=== PATIENT | male | born 1940 | race Caucasian/White ===

== ENCOUNTER 2017-07-15 11:09 | Emergency (ER) | payer MEDICARE ==
[2017-07-15 12:32] LABS: BASOPHILS # (AUTO) 0.1 10^3/uL (0.0-0.1); BASOPHILS % (AUTO) 1.5 %; EOSINOPHILS # (AUTO) 0.3 10^3/uL (0.0-0.7); EOSINOPHILS % (AUTO) 5.1 %; HCT - HEMATOCRIT 44.6 % (42.0-52.0); HGB - HEMOGLOBIN 14.9 g/dL (14.0-18.0); LYMPHOCYTES # (AUTO) 0.9 10^3/uL (1.5-3.5); LYMPHOCYTES % (AUTO) 13.7 %; MEAN CORPUSCULAR HGB CONC 33.5 g/dL (32.0-36.0); MEAN CORPUSCULAR VOLUME 89.6 fL (80.0-94.0); MONOCYTES # (AUTO) 0.7 10^3/uL (0.0-1.0); MONOCYTES % (AUTO) 10.6 %; NEUTROPHILS # (AUTO) 4.6 10^3/uL (1.5-6.6); NEUTROPHILS % (AUTO) 69.1 %; NUCLEATED RED BLOOD CELLS AUTO 0.1 /100WBC; RED BLOOD COUNT 4.97 10^6/uL (4.70-6.10); RED CELL DISTRIBUTION WIDTH 14.2 % (12.0-15.0); UNCORRECTED WHITE BLOOD COUNT 6.7 x10^3/uL; WHITE BLOOD COUNT 6.7 x10^3/uL (4.8-10.8)
[2017-07-15 12:33] LABS: INR 3.2 (0.8-1.2)
[2017-07-15 12:39] LABS: ALBUMIN/GLOBULIN RATIO 1.1 (1.0-2.2); BILIRUBIN,TOTAL 0.9 mg/dL (0.2-1.0); CALCIUM 9.1 mg/dL (8.5-10.3); CREATININE 1.2 mg/dL (0.6-1.2); POTASSIUM 4.2 mmol/L (3.5-5.0); TOTAL PROTEIN 7.3 g/dL (6.7-8.2)
--- NOTE | 2017-07-15 12:44 | XRAY Preliminary Report ---
Exam: XR CHEST 2 VIEW PA/LAT IMPRESSION: 1. Chronic lung disease. 2. Possible trace left pleural effusion. [facility] SITE ID: [id number]
--- NOTE | 2017-07-15 12:47 | XRAY Report ---
EXAM: CHEST RADIOGRAPHY EXAM DATE: 07/15/2017 12:30 PM. CLINICAL HISTORY: Cough/congestion. COMPARISON: 10/22/2015. 07/07/2014. TECHNIQUE: 2 views. FINDINGS: Lungs/Pleura: The lungs are hyperinflated with flattening of the diaphragms. The left costophrenic an gle is blunted. There are chronic interstitial markings. No acute infiltrate or consolidation is appr eciated. No pneumothorax or pleural effusion. Mediastinum: Stable cardiac and mediastinal silhouettes. Other: Sternal wires. IMPRESSION: 1. Chronic lung disease. 2. Possible trace left pleural effusion. [facility] Referring Provider Line: [phone] SITE ID: [id number]
[2017-07-15] MEDS ORDERED: DEXAMETHASONE 10 MG/ML VIAL PO STA (12:55)
[2017-07-15] MEDS ORDERED: IPRATROPIUM/ALBUTEROL 3 ML NEB INH STA (12:55)
--- NOTE | 2017-07-15 12:58 | ED Physician Documentation ---
PD HPI URI - Stated complaint Stated Complaint: COUGHING UP BLOOD - Chief complaint Chief Complaint: Resp - History obtained from History obtained from: Patient - History of Present Illness Timing - onset: How many weeks ago (2) Timing duration: Weeks (2) Timing details: Gradual onset Pain level max: 0 Pain level now: 0 Associated symptoms: Nasal congestion, Rhinorrhea, Dry cough, Hemoptysis (small amount, pink at the end of coughing spells), Dyspnea (wheezing, hasn't used his inhalers). No: Fever, Chills, Chest pain Contributing factors: Other (states cleaned up mold in his home a few weeks ago) Improves by: Rest Worsened by: Activity, Breathing Similar symptoms before: Diagnosis (pneumonia) Recently seen: Not recently seen Review of Systems Ten Systems: 10 systems reviewed and negative Constitutional: denies: Fever, Chills Ears: denies: Ear pain Nose: reports: Rhinorrhea / runny nose, Congestion Throat: denies: Sore throat Cardiac: denies: Chest pain / pressure Respiratory: reports: Cough, Wheezing Skin: denies: Rash Musculoskeletal: denies: Neck pain, Back pain Neurologic: denies: Headache PD PAST MEDICAL HISTORY - Past Medical History Cardiovascular: Congestive heart failure, Hypertension, High cholesterol, Coronary artery disease, [place], Atrial fibrillation Respiratory: CPAP use Neuro: None Endocrine/Autoimmune: None GI: GERD : Incontinence HEENT: Macular degeneration Psych: None Musculoskeletal: Osteoarthritis Derm: Other - Past Surgical History Past Surgical History: Yes Cardiovascular: CABG, Coronary stent, Valve replacement - Present Medications Home Medications: Ambulatory Orders Medication Instructions Recorded Confirmed Aspirin [Ecotrin] 81 mg PO DAILY 07/07/14 10/22/15 Carvedilol [Coreg] 3.125 mg PO QPM 07/07/14 10/22/15 Cholecalciferol (Vitamin D3) 2,000 unit PO DAILY 07/07/14 10/22/15 [Vitamin D-3] Ezetimibe [Zetia] 10 mg PO QPM 07/07/14 10/22/15 Lisinopril [Prinivil] 20 mg PO BID 07/07/14 10/22/15 Multivitamin [Multivitamins] 1 each PO DAILY 07/07/14 10/22/15 [place]-3 Fatty Acids [Fish Oil] 2,000 mg PO BID 07/07/14 10/22/15 Pravastatin Sodium 20 mg PO QPM 07/07/14 10/22/15 Vitamin E 400 unit PO DAILY 07/07/14 10/22/15 Warfarin Sodium [Coumadin] 10 mg PO DAILY 07/07/14 10/22/15 Furosemide [Lasix] 20 mg PO DAILY #10 tablet 10/22/15 Potassium Chloride [K-Dur] 20 meq PO DAILY #10 tablet 10/22/15 Ropinirole HCl [Requip] 1 mg 10/22/15 10/22/15 amLODIPine [Norvasc] 5 mg 10/22/15 10/22/15 Albuterol Sulf [Ventolin Hfa 2 puffs INH Q4HR PRN #1 inhaler 07/15/17 Inhaler] Cetirizine HCl/Pseudoephedrine 1 each PO BID PRN #30 tab.er.12h 07/15/17 [Zyrtec-D Tablet] Prednisone 40 mg PO DAILY #10 tablet 07/15/17 - Allergies Allergies/Adverse Reactions: Allergies Allergy/AdvReac Type Severity Reaction Status Date / Time niacin AdvReac Unknown Verified 10/22/15 16:40 nitroglycerin AdvReac Headache Verified 10/22/15 16:40 - Social History Does the pt smoke?: No Smoking Status: Never smoker Does the pt drink ETOH?: No Does the pt have substance abuse?: No - Immunizations Immunizations are current?: Yes - POLST Patient has POLST: No PD ED PE NORMAL - Vitals Vital signs reviewed: Yes - General General: Alert and oriented X 3, No acute distress - HEENT HEENT: PERRL, Moist mucous membranes, Pharynx benign - Neck Neck: Supple, no meningeal sign, No adenopathy - Cardiac Cardiac: RRR, Strong equal pulses - Respiratory Respiratory: No respiratory distress, Other (wheezing B) - Abdomen Abdomen: Soft, Non tender, Non distended - Derm Derm: Warm and dry - Extremities Extremities: No edema, No calf tenderness / cord - Neuro Neuro: Alert and oriented X 3 - Psych Psych: Normal mood, Normal affect Results - Vitals Vitals: Vital Signs - 24 hr 07/15/17 07/15/17 07/15/17 11:25 12:41 13:06 Temperature 36.5 C 36.2 C L Heart Rate 54 L 73 82 Respiratory 17 15 16 Rate Blood Pressure 164/91 H 195/96 H O2 Saturation 97 97 07/15/17 13:25 Temperature 36.6 C Heart Rate 62 Respiratory Rate Blood Pressure 163/98 H O2 Saturation 97 Oxygen O2 Source Room air - Labs Labs: Laboratory Tests 07/15/17 07/15/17 07/15/17 12:20 12:20 12:20 WBC 6.7 RBC 4.97 Hgb 14.9 Hct 44.6 MCV 89.6 MCH 30.0 MCHC 33.5 RDW 14.2 Plt Count 175 MPV 8.0 Neut # 4.6 Lymph # 0.9 L [place] # 0.7 Eos # 0.3 Baso # 0.1 Absolute Nucleated RBC 0.00 Nucleated RBC % 0.1 PT 36.0 H INR 3.2 H Sodium 138 Potassium 4.2 Chloride 105 Carbon Dioxide 26 Anion Gap 7.0 BUN 17 Creatinine 1.2 Estimated GFR (MDRD) 59 L Glucose 104 H Calcium 9.1 Total Bilirubin 0.9 AST 43 H ALT 44 Alkaline Phosphatase 68 B-Natriuretic Peptide Total Protein 7.3 Albumin 3.8 Globulin 3.5 Albumin/Globulin Ratio 1.1 Lipase 27 07/15/17 12:20 WBC RBC Hgb Hct MCV MCH MCHC RDW Plt Count MPV Neut # Lymph # [place] # Eos # Baso # Absolute Nucleated RBC Nucleated RBC % PT INR Sodium Potassium Chloride Carbon Dioxide Anion Gap BUN Creatinine Estimated GFR (MDRD) Glucose Calcium Total Bilirubin AST ALT Alkaline Phosphatase B-Natriuretic Peptide 218 H Total Protein Albumin Globulin Albumin/Globulin Ratio Lipase - Rads (name of study) cxr Radiology: Prelim report reviewed, EMP read contemporaneously, See rad report ( Chronic lung disease. poss trace L pleural effusion) PD MEDICAL DECISION MAKING - ED course Complexity details: reviewed results, re-evaluated patient, considered differential, d/w patient ED course: Patient is a 76-year-old male who presents to the emergency department with what appears to be a viral URI with wheezing. He does have chronic lung disease and feels better after nebulizer treatment. His INR is also supratherapeutic and will hold his next dose of warfarin. We will continue supportive care in addition to steroids and breathing treatments at home. No evidence of pneumonia. No evidence of significant hemoptysis, appears to be a small amount of hemoptysis likely shear forces from coughing coupled with his elevated INR. Patient is very well-appearing, nontoxic. Afebrile. No hypoxia. Patient counseled regarding signs and symptoms for which I believe and urgent re-evaluation would be necessary. Patient with good understanding of and agreement to plan and is comfortable going home at this time This document was made in part using voice recognition software. While efforts are made to proofread this document, sound alike and grammatical errors may occur. Departure - Departure Disposition: Home, Self Care Clinical Impression: Viral URI, Supratherapeutic INR, Hemoptysis Condition: Good Instructions: ED URI Viral Follow-Up: Patrick Bartholomew MD [Primary Care Provider] - Within 1 week Prescriptions: Albuterol Sulf [Ventolin Hfa Inhaler] 2 puffs INH Q4HR PRN #1 inhaler PRN Reason: Wheezing Cetirizine HCl/Pseudoephedrine [Zyrtec-D Tablet] 1 each PO BID PRN #30 tab.er.12h PRN Reason: Nasal Congestion Prednisone 40 mg PO DAILY #10 tablet Comments: Return if you worsen. Hold your next dose of warfarin. Discharge Date/Time: 07/15/17 13:28
[2017-07-15] MEDS ORDERED: IPRATROPIUM/ALBUTEROL 3 ML NEB INH ONE (13:06)
[2017-07-15] MEDS ORDERED: DEXAMETHASONE 10 MG/ML VIAL ONE ×2 (13:22→13:25)
[2017-07-15] MEDS ORDERED: CHERRY SYRUP 10 ML UDC PO ONE ×2 (13:22→13:25)
[2017-07-15 13:26] VITALS: BP 163/98
== END 2017-07-15 13:28 | disposition home or self-care (01) ==
LOC: ED 11:09
DX: J06.9 Acute upper respiratory infection, unspecified (principal); B97.89 Other viral agents as the cause of diseases classified elsewhere; D68.9 Coagulation defect, unspecified; R04.2 Hemoptysis; I11.0 Hypertensive heart disease with heart failure; I50.9 Heart failure, unspecified; I25.10 Atherosclerotic heart disease of native coronary artery without angina pectoris; Z95.1 Presence of aortocoronary bypass graft; I25.2 Old myocardial infarction; I48.91 Unspecified atrial fibrillation; Z79.01 Long term (current) use of anticoagulants; E78.00 Pure hypercholesterolemia, unspecified; M19.90 Unspecified osteoarthritis, unspecified site; K21.9 Gastro-esophageal reflux disease without esophagitis; Z95.2 Presence of prosthetic heart valve; Z79.82 Long term (current) use of aspirin
CPT/HCPCS: 36415; 71020; 80053; 83690; 83880; 85025; 85610; 94640; 94664; 99283; A9270; J7620

== ENCOUNTER 2018-12-19 14:20 | Emergency (ER) | payer MEDICARE, OTHER ==
[2018-12-19 14:28] VITALS: BP 156/80
--- NOTE | 2018-12-19 15:09 | ED Physician Documentation ---
PD HPI LOWER EXT INJURY - Stated complaint Stated Complaint: LT ANKLE INJURY - Chief complaint Chief Complaint: General - History obtained from History obtained from: Patient - History of Present Illness PD HPI LOW EXT INJURY LOCATION: Left, Ankle Type of injury: Fall Where injury occurred: Home Timing - onset: Enter time (1100), Today Timing - duration: Minutes Timing - details: Abrupt onset, Still present Improved by: Rest, Immobilization Worsened by: Moving, Palpating Associated symptoms: Swelling. No: Weakness, Numbness, Tingling Contributing factors: No: Anticoagulated Similar symptoms before: Has not had sx before Recently seen: Not recently seen - Additional information Additional information: 78-year-old male was up on a ladder today to put up a [employer] feeder and he was up about 3 rungs when he stepped wrong stepped down and fell the rest of the way. He landed on both of his feet and twisted his left ankle. He complains of some pain to the medial malleolus and he has been able to bear weight on this and walk into the emergency department. Review of Systems Constitutional: denies: Fever Respiratory: denies: Cough GI: denies: Vomiting, Diarrhea Musculoskeletal: reports: Joint swelling, Pain with weight bearing. denies: Neck pain, Back pain Neurologic: denies: Generalized weakness, Focal weakness, Numbness PD PAST MEDICAL HISTORY - Past Medical History Cardiovascular: Congestive heart failure, Hypertension, High cholesterol, Coronary artery disease, [place], Atrial fibrillation Respiratory: CPAP use Endocrine/Autoimmune: None GI: GERD : Incontinence HEENT: Macular degeneration Psych: None Musculoskeletal: Osteoarthritis Derm: Other - Past Surgical History Past Surgical History: Yes Cardiovascular: CABG, Coronary stent, Valve replacement - Present Medications Home Medications: Ambulatory Orders Medication Instructions Recorded Confirmed Aspirin [Ecotrin] 81 mg PO DAILY 07/07/14 10/22/15 Carvedilol [Coreg] 3.125 mg PO QPM 07/07/14 10/22/15 Cholecalciferol (Vitamin D3) 2,000 unit PO DAILY 07/07/14 10/22/15 [Vitamin D-3] Ezetimibe [Zetia] 10 mg PO QPM 07/07/14 10/22/15 Lisinopril [Prinivil] 20 mg PO BID 07/07/14 10/22/15 Multivitamin [Multivitamins] 1 each PO DAILY 07/07/14 10/22/15 [place]-3 Fatty Acids [Fish Oil] 2,000 mg PO BID 07/07/14 10/22/15 Pravastatin Sodium 20 mg PO QPM 07/07/14 10/22/15 Vitamin E 400 unit PO DAILY 07/07/14 10/22/15 Warfarin Sodium [Coumadin] 10 mg PO DAILY 07/07/14 10/22/15 Furosemide [Lasix] 20 mg PO DAILY #10 tablet 10/22/15 Potassium Chloride [K-Dur] 20 meq PO DAILY #10 tablet 10/22/15 Ropinirole HCl [Requip] 1 mg 10/22/15 10/22/15 amLODIPine [Norvasc] 5 mg 10/22/15 10/22/15 Albuterol Sulf [Ventolin Hfa 2 puffs INH Q4HR PRN #1 inhaler 07/15/17 Inhaler] Cetirizine HCl/Pseudoephedrine 1 each PO BID PRN #30 tab.er.12h 07/15/17 [Zyrtec-D Tablet] predniSONE [Prednisone] 40 mg PO DAILY #10 tablet 07/15/17 - Allergies Allergies/Adverse Reactions: Allergies Allergy/AdvReac Type Severity Reaction Status Date / Time niacin AdvReac Unknown Verified 12/19/18 14:28 nitroglycerin AdvReac Headache Verified 12/19/18 14:28 - Social History Does the pt smoke?: No Smoking Status: Never smoker Does the pt drink ETOH?: No Does the pt have substance abuse?: No - Immunizations Immunizations are current?: Yes - POLST Patient has POLST: No PD ED PE NORMAL - Vitals Vital signs reviewed: Yes (hypertension ) - General General: Alert and oriented X 3, No acute distress, Well developed/nourished - HEENT HEENT: Atraumatic - Respiratory Respiratory: No respiratory distress - Derm Derm: Normal color, Warm and dry, No rash - Extremities Extremities: No deformity, Other (There is post inflammitory hyperpigmentation to the lower ext. There is point tenderness and swelling to the left ankle joint with maximal tenderness to the medial malleolus. The distal n/v is intact. ) - Neuro Neuro: Alert and oriented X 3, behavior clinician 2-12 intact, No motor deficit, No sensory deficit Eye Opening: Spontaneous Motor: Obeys Commands Verbal: Oriented GCS Score: 15 - Psych Psych: Normal mood, Normal affect Results - Vitals Vitals: Vital Signs - 24 hr 12/19/18 14:22 Temperature 36.6 C Heart Rate 57 L Respiratory 18 Rate Blood Pressure 156/80 H O2 Saturation 98 Oxygen O2 Source Room air - Rads (name of study) ankle Radiology: Prelim report reviewed (Impression: Nondisplaced medial malleolar fracture.), EMP read indepedently, See rad report Procedures - Splint (location) left ankle Splint applied by: Tech Type of splint: Fiberglass, Posterior Other: Patient tolerated well, No complications, Neurovascular intact, Good alignment, Crutches provided PD MEDICAL DECISION MAKING - ED course Complexity details: reviewed old records, reviewed results, re-evaluated patient, considered differential, d/w patient ED course: 78-year-old male stepping off of a ladder has fractured his medial malleolus it is nondisplaced on the left side and he is placed into a posterior splint and onto crutches and will follow up with orthopedics. Departure - Departure Disposition: 01 Home, Self Care Clinical Impression: Fractured medial malleolus Qualifiers: Encounter type: initial encounter Fracture type: closed Fracture alignment: nondisplaced Laterality: left Qualified Code(s): S82.55XA - Nondisplaced fracture of medial malleolus of left tibia, initial encounter for closed fracture Condition: Stable Instructions: ED Fx Ankle General Follow-Up: Patrick Bartholomew MD [Primary Care Provider] - [facility] [Provider Group]
--- NOTE | 2018-12-19 15:41 | XRAY Report ---
Reason: fall from ladder medial malleolus pain Procedure Date: 12/19/2018 Accession Number: [id number] / [id number] Procedure: XR - Ankle 3 View LT CPT Code: FULL RESULT: EXAM: LEFT ANKLE RADIOGRAPHY EXAM DATE: 12/19/2018 03:30 PM. CLINICAL HISTORY: Fall from ladder medial malleolus pain. COMPARISON: None. TECHNIQUE: 3 views. FINDINGS: Bones: Nondisplaced oblique fracture of medial malleolus. No other definite fracture or bone lesion. Small smooth ossicle at the tip of lateral malleolus. Joints: Symmetrical mortise. Small joint effusion. Soft Tissues: Soft tissue swelling over the malleoli, medial more than lateral. Vascular calcifications. IMPRESSION: Nondisplaced medial malleolar fracture. [facility]
== END 2018-12-19 16:48 | disposition home or self-care (01) ==
LOC: ED 14:20
DX: S82.55XA Nondisplaced fracture of medial malleolus of left tibia, initial encounter for closed fracture (principal); W11.XXXA Fall on and from ladder, initial encounter; Y93.89 Activity, other specified; Y92.007 Garden or yard of unspecified non-institutional (private) residence as the place of occurrence of the external cause; E78.00 Pure hypercholesterolemia, unspecified; I25.2 Old myocardial infarction; I25.10 Atherosclerotic heart disease of native coronary artery without angina pectoris; I11.0 Hypertensive heart disease with heart failure; I50.9 Heart failure, unspecified; I48.91 Unspecified atrial fibrillation; Z95.1 Presence of aortocoronary bypass graft; Z95.2 Presence of prosthetic heart valve; Z95.5 Presence of coronary angioplasty implant and graft; Z79.01 Long term (current) use of anticoagulants; Z79.82 Long term (current) use of aspirin
CPT/HCPCS: 29515; 99283

== ENCOUNTER 2019-03-12 10:16 | Emergency (ER) | payer OTHER ==
[2019-03-12 10:24] VITALS: BP 155/86
--- NOTE | 2019-03-12 10:30 | ED Physician Documentation ---
History of Present Illness - Stated complaint Stated Complaint: MALE - Chief complaint Chief Complaint: UTI - History obtained from History obtained from: Patient - Additonal information Additional information: Patient is a 78-year-old male with complicated past medical history presenting with painless hematuria over the past several days. Patient denies any particular trauma or inciting incident. Patient denies dysuria or other complications with urination. Patient denies known prostate issues. He also denies fever, chills, nausea, vomiting, abdominal pain, back pain. He chronically struggles with constipation and diarrhea. Patient is on anticoagulation. No other improving or worsening factors noted. Review of Systems Constitutional: denies: Fever GI: reports: Constipation, Diarrhea. denies: Abdominal Pain, Nausea, Vomiting : reports: Hematuria. denies: Dysuria PD PAST MEDICAL HISTORY - Past Medical History Cardiovascular: Congestive heart failure, Hypertension, High cholesterol, Coronary artery disease, [place], Atrial fibrillation Respiratory: CPAP use Endocrine/Autoimmune: None GI: GERD : Incontinence HEENT: Macular degeneration Psych: None Musculoskeletal: Osteoarthritis Derm: Other - Past Surgical History Past Surgical History: Yes Cardiovascular: CABG, Coronary stent, Valve replacement - Present Medications Home Medications: Ambulatory Orders Medication Instructions Recorded Confirmed Aspirin [Ecotrin] 81 mg PO DAILY 07/07/14 10/22/15 Carvedilol [Coreg] 3.125 mg PO QPM 07/07/14 10/22/15 Cholecalciferol (Vitamin D3) 2,000 unit PO DAILY 07/07/14 10/22/15 [Vitamin D-3] Ezetimibe [Zetia] 10 mg PO QPM 07/07/14 10/22/15 Lisinopril [Prinivil] 20 mg PO BID 07/07/14 10/22/15 Multivitamin [Multivitamins] 1 each PO DAILY 07/07/14 10/22/15 [place]-3 Fatty Acids [Fish Oil] 2,000 mg PO BID 07/07/14 10/22/15 Pravastatin Sodium 20 mg PO QPM 07/07/14 10/22/15 Vitamin E 400 unit PO DAILY 07/07/14 10/22/15 Warfarin Sodium [Coumadin] 10 mg PO DAILY 07/07/14 10/22/15 Furosemide [Lasix] 20 mg PO DAILY #10 tablet 10/22/15 Potassium Chloride [K-Dur] 20 meq PO DAILY #10 tablet 10/22/15 Ropinirole HCl [Requip] 1 mg 10/22/15 10/22/15 amLODIPine [Norvasc] 5 mg 10/22/15 10/22/15 Albuterol Sulf [Ventolin Hfa 2 puffs INH Q4HR PRN #1 inhaler 07/15/17 Inhaler] Cetirizine HCl/Pseudoephedrine 1 each PO BID PRN #30 tab.er.12h 07/15/17 [Zyrtec-D Tablet] predniSONE [Prednisone] 40 mg PO DAILY #10 tablet 07/15/17 Ciprofloxacin HCl [Cipro] 500 mg PO BID #14 tablet 03/12/19 - Allergies Allergies/Adverse Reactions: Allergies Allergy/AdvReac Type Severity Reaction Status Date / Time niacin AdvReac Unknown Verified 03/12/19 10:23 nitroglycerin AdvReac Headache Verified 03/12/19 10:23 - Social History Does the pt smoke?: No Smoking Status: Never smoker Does the pt drink ETOH?: No Does the pt have substance abuse?: No - Immunizations Immunizations are current?: Yes - POLST Patient has POLST: No PD ED PE NORMAL - Vitals Vital signs reviewed: Yes - General General: Alert and oriented X 3, No acute distress, Well developed/nourished - Respiratory Respiratory: No respiratory distress - Abdomen Abdomen: Soft, Non tender, Non distended - Back Back: No CVA TTP - Derm Derm: Normal color, Warm and dry, No rash - Extremities Extremities: No deformity, No tenderness to palpate - Neuro Neuro: Alert and oriented X 3, No motor deficit, No sensory deficit - Psych Psych: Normal mood, Normal affect Results - Vitals Vitals: Vital Signs - 24 hr 03/12/19 03/12/19 10:22 10:23 Temperature 36.5 C Heart Rate 68 Blood Pressure 155/86 H Oxygen O2 Source Room air - Labs Labs: Laboratory Tests 03/12/19 10:35 Urine Color RED/BLOODY Urine Clarity CLOUDY Urine pH 5.0 Ur Specific [place] 1.025 Urine Protein 100 H Urine Glucose (UA) 100 H Urine Ketones NEGATIVE Urine Occult Blood LARGE H Urine Nitrite POSITIVE H Urine Bilirubin NEGATIVE Urine Urobilinogen 1 (NORMAL) Ur Leukocyte Esterase TRACE H Urine RBC TNTC H Urine WBC 0-3 Ur Squamous Epith Cells NONE SEEN Urine Bacteria Few Ur Microscopic Review INDICATED Urine Culture Comments INDICATED PD MEDICAL DECISION MAKING - ED course Complexity details: re-evaluated patient, considered differential, d/w patient ED course: Patient presenting with painless hematuria. Do have concern for possible urinary tract infection, as well as benign prostatic hypertrophy. Patient denies known prostate issues. Based on physical exam and symptoms have low suspicion for intra-abdominal issues, nephrolithiasis, pyelonephritis, or systemic infection. Given patient's age, also have concern for possible carcinoma, but that would likely require further outpatient work-up. No obvious signs of decline today.Urine sample obtained which indicated presence of blood and obvious infection. Feel most appropriate to treat as an outpatient with oral antibiotics. Discussed use of medications, other supportive cares, return precautions, need for follow-up with patient who voiced understanding and is comfortable with discharge plan. Departure - Departure Disposition: 01 Home, Self Care Clinical Impression: Urinary tract infection Qualifiers: Urinary tract infection type: acute cystitis Hematuria presence: with hematuria Qualified Code(s): N30.01 - Acute cystitis with hematuria Condition: Good Instructions: ED UTI Cystitis Male Follow-Up: Patrick Bartholomew MD [Primary Care Provider] - Within 3 Days Prescriptions: Ciprofloxacin HCl [Cipro] 500 mg PO BID #14 tablet Comments: Please continue home medications as previously instructed. Recommend using antibiotic to treat bladder infection. Follow-up with primary care physician in next 2 to 3 days and return to ED sooner if expands worsening symptoms or have other concerns.
[2019-03-12 10:49] LABS: GLUCOSE, URINE (UA) 100 mg/dL (NEGATIVE); KETONES,URINE (UA) NEGATIVE (NEGATIVE); LEUKOCYTE ESTERASE, URINE TRACE (NEGATIVE); NITRITE,URINE POSITIVE (NEGATIVE); OCCULT BLOOD,URINE LARGE (NEGATIVE); PROTEIN,URINE 100 mg/dL (NEGATIVE); UROBILINOGEN,URINE 1 (NORMAL) E.U./dL (NORMAL)
[2019-03-12 11:06] LABS: BILIRUBIN,URINE NEGATIVE (NEGATIVE); ICTOTEST,URINE NEGATIVE
[2019-03-12 11:07] LABS: CLARITY,URINE CLOUDY (CLEAR)
[2019-03-12 11:14] LABS: BACTERIA,URINE Few /HPF (None Seen); RBC,URINE TNTC /HPF (0-5); SQUAMOUS EPITHELIAL CELL,UR NONE SEEN (<= Few)
== END 2019-03-12 11:34 | disposition home or self-care (01) ==
LOC: ED 10:16
DX: N30.01 Acute cystitis with hematuria (principal); K59.09 Other constipation; K52.9 Noninfective gastroenteritis and colitis, unspecified; I11.0 Hypertensive heart disease with heart failure; I50.9 Heart failure, unspecified; I48.91 Unspecified atrial fibrillation; I25.10 Atherosclerotic heart disease of native coronary artery without angina pectoris; I25.2 Old myocardial infarction; Z79.01 Long term (current) use of anticoagulants; Z95.5 Presence of coronary angioplasty implant and graft; Z95.1 Presence of aortocoronary bypass graft; Z95.2 Presence of prosthetic heart valve; Z79.82 Long term (current) use of aspirin; Z79.899 Other long term (current) drug therapy
CPT/HCPCS: 81001; 81003; 87086; 87181; 99283

== ENCOUNTER 2019-09-10 07:49 | Outpatient (CLI) | payer OTHER | END 2019-09-10 07:50 | disposition short-term general hospital (02) | LOC: EMS 07:49 | PROVIDERS: ATTEND Surgery | DX: R07.9 Chest pain, unspecified (principal) | CPT/HCPCS: A0425; A0427 ==

== ENCOUNTER 2019-09-16 09:21 | Outpatient (CLI) | payer OTHER | END 2019-09-16 09:22 | disposition critical access hospital (66) | LOC: EMS 09:21 | PROVIDERS: ATTEND Surgery | DX: R41.82 Altered mental status, unspecified (principal); R11.10 Vomiting, unspecified; R32 Unspecified urinary incontinence | CPT/HCPCS: A0425; A0427 ==

== ENCOUNTER 2019-09-16 09:53 | Emergency (ER) | payer OTHER ==
[2019-09-16 10:39] LABS: MUDS CUTOFF CONCENTRATIONS CUTOFF CONC BELOW:
[2019-09-16 10:41] LABS: BILIRUBIN,URINE NEGATIVE (NEGATIVE); GLUCOSE, URINE (UA) NEGATIVE (NEGATIVE); KETONES,URINE (UA) TRACE mg/dL (NEGATIVE); LEUKOCYTE ESTERASE, URINE NEGATIVE (NEGATIVE); NITRITE,URINE NEGATIVE (NEGATIVE); OCCULT BLOOD,URINE MODERATE (NEGATIVE); PROTEIN,URINE 100 mg/dL (NEGATIVE); UROBILINOGEN,URINE 1 (NORMAL) E.U./dL (NORMAL)
[2019-09-16 10:43] LABS: CLARITY,URINE CLEAR (CLEAR)
[2019-09-16 10:52] LABS: AMPHETAMINE SCREEN,URINE NEGATIVE (NEGATIVE); BENZODIAZEPINES SCREEN, URINE NEGATIVE (NEGATIVE); COCAINE SCREEN URINE NEGATIVE (NEGATIVE); METHADONE SCREEN, URINE NEGATIVE (NEGATIVE); METHAMPHETAMINES SCREEN, URINE NEGATIVE (NEGATIVE); OPIATE SCREEN, URINE NEGATIVE (NEGATIVE); OXYCODONE SCREEN, URINE NEGATIVE (NEGATIVE); PROPOXYPHENE SCREEN, URINE NEGATIVE (NEGATIVE); TRICYCLIC ANTIDEPRESSANT,URINE NEGATIVE (NEGATIVE)
[2019-09-16 10:59] LABS: BACTERIA,URINE Moderate /HPF (None Seen); RBC,URINE 0-5 /HPF (0-5); SQUAMOUS EPITHELIAL CELL,UR NONE SEEN (<= Few)
--- NOTE | 2019-09-16 11:07 | ED Physician Documentation ---
PD HPI ALTERED MENTAL STATUS - Stated complaint Stated Complaint: AMS - Chief complaint Chief Complaint: Neuro - History obtained from History obtained from: Patient, Family, EMS - History of Present Illness Timing - onset: Today Timing - details: Abrupt onset (Has confusion, sleepy, and some agitated today. He told his he was getting ready for work, and he has been retired for years. She called EMS. Has been complaining of headache for several days to a week, without altered mentation.) Quality / character: Confused, Disoriented, Agitated Associated symptoms: Headache, NVD (EMS reports he did vomit once en route but did not seem to have any abdominal pain.). No: Fever, Dyspnea, Cough Contributing factors: Anticoagulated. No: Diabetic, Recent injury Basline status: Alert and oriented X 3, Ambulatory Similar symptoms before: Has not had sx before Recently seen: Emergency Dept (His says he was seen at [facility] for an episode of chest pain. EMS had been called and because of the concern for acute coronary syndrome was brought to [facility] worries reportedly spent overnight and had a rule out for heart disease. This was within the past week or so. His states he was complaining a little bit of headache in that timeframe but apparently was not part of the evaluation there.), Admitted Review of Systems Unable to obtain: AMS, Confused PD PAST MEDICAL HISTORY - Past Medical History Past Medical History: Yes Cardiovascular: Congestive heart failure, Hypertension, High cholesterol, Coronary artery disease, CA, Atrial fibrillation Respiratory: CPAP use Endocrine/Autoimmune: None GI: GERD : Incontinence HEENT: Macular degeneration Psych: None Musculoskeletal: Osteoarthritis Derm: Other - Past Surgical History Past Surgical History: Yes Cardiovascular: CABG, Coronary stent, Valve replacement - Present Medications Home Medications: Ambulatory Orders Medication Instructions Recorded Confirmed Aspirin [Ecotrin] 81 mg PO DAILY 07/07/14 10/22/15 Carvedilol [Coreg] 3.125 mg PO QPM 07/07/14 10/22/15 Cholecalciferol (Vitamin D3) 2,000 unit PO DAILY 07/07/14 10/22/15 [Vitamin D-3] Ezetimibe [Zetia] 10 mg PO QPM 07/07/14 10/22/15 Lisinopril [Prinivil] 20 mg PO BID 07/07/14 10/22/15 Multivitamin [Multivitamins] 1 each PO DAILY 07/07/14 10/22/15 [place]-3 Fatty Acids [Fish Oil] 2,000 mg PO BID 07/07/14 10/22/15 Pravastatin Sodium 20 mg PO QPM 07/07/14 10/22/15 Vitamin E 400 unit PO DAILY 07/07/14 10/22/15 Warfarin Sodium [Coumadin] 10 mg PO DAILY 07/07/14 10/22/15 Furosemide [Lasix] 20 mg PO DAILY #10 tablet 10/22/15 Potassium Chloride [K-Dur] 20 meq PO DAILY #10 tablet 10/22/15 Ropinirole HCl [Requip] 1 mg 10/22/15 10/22/15 amLODIPine [Norvasc] 5 mg 10/22/15 10/22/15 Albuterol Sulf [Ventolin Hfa 2 puffs INH Q4HR PRN #1 inhaler 07/15/17 Inhaler] Cetirizine HCl/Pseudoephedrine 1 each PO BID PRN #30 tab.er.12h 07/15/17 [Zyrtec-D Tablet] predniSONE [Prednisone] 40 mg PO DAILY #10 tablet 07/15/17 Ciprofloxacin HCl [Cipro] 500 mg PO BID #14 tablet 03/12/19 - Allergies Allergies/Adverse Reactions: Allergies Allergy/AdvReac Type Severity Reaction Status Date / Time niacin AdvReac Unknown Verified 03/12/19 10:23 nitroglycerin AdvReac Headache Verified 03/12/19 10:23 - Living Situation Living Situation: reports: With spouse/s.o., Other (Reportedly is functional and active and performs his own ADLs and does the shopping for the house. EMS had reported the house was fairly unkempt with concern for there ability for care however.) Living Arrangement: reports: At home - Social History Does the pt smoke?: No Smoking Status: Never smoker Does the pt drink ETOH?: Yes Does the pt have substance abuse?: No - Family History Family history: denies: Cerebral aneurysm - Immunizations Immunizations are current?: Yes - POLST Patient has POLST: No PD ED PE NORMAL - Vitals Vital signs reviewed: Yes - General General: No acute distress, Well developed/nourished, Other (He will open his eyes to verbal and tactile stimuli. He was able to tell me his first name. He was not sure about his year or month. He could tell me his date of . He was able to squeeze my hands and following commands.). No: Alert and oriented X 3 - HEENT HEENT: Atraumatic, Pharynx benign - Neck Neck: Supple, no meningeal sign, No adenopathy, No JVD - Cardiac Cardiac: No murmur. No: RRR (irregular but normal rate.) - Respiratory Respiratory: No: Clear bilaterally (some mild wheezing.) - Abdomen Abdomen: Soft, Non tender - Derm Derm: Normal color, Warm and dry - Neuro Neuro: No motor deficit. No: Normal speech Eye Opening: To Voice Motor: Obeys Commands Verbal: Confused GCS Score: 13 - Psych Psych: No: Normal affect (flat) Results - Vitals Vitals: Vital Signs - 24 hr 09/16/19 09/16/19 09/16/19 09:55 10:17 12:04 Temperature 37.8 C H Heart Rate 77 85 Respiratory 21 26 H Rate Blood Pressure 167/102 H 192/95 H O2 Saturation 88 L 93 98 09/16/19 09/16/19 14:16 15:30 Temperature Heart Rate 81 77 Respiratory 22 23 Rate Blood Pressure 180/100 H O2 Saturation 98 Oxygen O2 Source Room air - Labs Labs: Laboratory Tests 09/16/19 09/16/19 09/16/19 10:34 10:58 10:58 WBC 9.7 RBC 5.05 Hgb 15.3 Hct 45.2 MCV 89.5 MCH 30.3 MCHC 33.8 RDW 12.5 Plt Count 202 MPV 9.6 Neut # (Auto) 8.6 H Lymph # (Auto) 0.5 L Thayer # (Auto) 0.5 Eos # (Auto) 0.0 Baso # (Auto) 0.0 Absolute Nucleated RBC 0.00 Nucleated RBC % 0.0 PT INR APTT Bld Gas Analysis Time Sample Site ABG pH ABG pCO2 ABG pO2 ABG HCO3 ABG Total CO2 ABG O2 Saturation ABG Oximetry Spot Check ABG Base Excess [place] Test Sodium 138 Potassium 3.7 Chloride 101 Carbon Dioxide 28 Anion Gap 9.0 BUN 12 Creatinine 1.1 Estimated GFR (MDRD) 65 L Glucose 134 H Lactic Acid Calcium 8.8 Magnesium Total Bilirubin 1.2 H AST 30 ALT 22 Alkaline Phosphatase 66 Total Protein 7.4 Albumin 3.9 Globulin 3.5 Albumin/Globulin Ratio 1.1 Lipase 30 TSH Urine Color YELLOW Urine Clarity CLEAR Urine pH 7.0 Ur Specific [place] 1.025 Urine Protein 100 H Urine Glucose (UA) NEGATIVE Urine Ketones TRACE Urine Occult Blood MODERATE H Urine Nitrite NEGATIVE Urine Bilirubin NEGATIVE Urine Urobilinogen 1 (NORMAL) Ur Leukocyte Esterase NEGATIVE Urine RBC 0-5 Urine WBC 0-3 Ur Squamous Epith Cells NONE SEEN Urine Bacteria Moderate H Ur Microscopic Review INDICATED Urine Culture Comments INDICATED Salicylates < 6.0 Urine Opiates Screen NEGATIVE Ur Oxycodone Screen NEGATIVE Urine Methadone Screen NEGATIVE Ur Propoxyphene Screen NEGATIVE Acetaminophen < 10 L Ur Barbiturates Screen NEGATIVE Ur Tricyclics Screen NEGATIVE Ur Phencyclidine Scrn NEGATIVE Ur Amphetamine Screen NEGATIVE U Methamphetamines Scrn NEGATIVE U Benzodiazepines Scrn NEGATIVE Urine Cocaine Screen NEGATIVE U Cannabinoids Screen NEGATIVE Ethyl Alcohol < 5.0 09/16/19 09/16/19 09/16/19 10:58 10:58 12:17 WBC RBC Hgb Hct MCV MCH MCHC RDW Plt Count MPV Neut # (Auto) Lymph # (Auto) Thayer # (Auto) Eos # (Auto) Baso # (Auto) Absolute Nucleated RBC Nucleated RBC % PT 40.3 H INR 3.8 H APTT 48.2 H Bld Gas Analysis Time Sample Site ABG pH ABG pCO2 ABG pO2 ABG HCO3 ABG Total CO2 ABG O2 Saturation ABG Oximetry Spot Check ABG Base Excess [place] Test Sodium Potassium Chloride Carbon Dioxide Anion Gap BUN Creatinine Estimated GFR (MDRD) Glucose Lactic Acid 1.6 Calcium Magnesium Total Bilirubin AST ALT Alkaline Phosphatase Total Protein Albumin Globulin Albumin/Globulin Ratio Lipase TSH 0.56 Urine Color Urine Clarity Urine pH Ur Specific [place] Urine Protein Urine Glucose (UA) Urine Ketones Urine Occult Blood Urine Nitrite Urine Bilirubin Urine Urobilinogen Ur Leukocyte Esterase Urine RBC Urine WBC Ur Squamous Epith Cells Urine Bacteria Ur Microscopic Review Urine Culture Comments Salicylates Urine Opiates Screen Ur Oxycodone Screen Urine Methadone Screen Ur Propoxyphene Screen Acetaminophen Ur Barbiturates Screen Ur Tricyclics Screen Ur Phencyclidine Scrn Ur Amphetamine Screen U Methamphetamines Scrn U Benzodiazepines Scrn Urine Cocaine Screen U Cannabinoids Screen Ethyl Alcohol 09/16/19 09/16/19 12:17 12:58 WBC RBC Hgb Hct MCV MCH MCHC RDW Plt Count MPV Neut # (Auto) Lymph # (Auto) Thayer # (Auto) Eos # (Auto) Baso # (Auto) Absolute Nucleated RBC Nucleated RBC % PT INR APTT Bld Gas Analysis Time 1258 Sample Site RIGHT RADIAL ABG pH 7.42 ABG pCO2 42 ABG pO2 61 L ABG HCO3 27.0 H ABG Total CO2 28.0 ABG O2 Saturation 91 L ABG Oximetry Spot Check 93 ABG Base Excess 2.0 Monroe Test POSITIVE Sodium Potassium Chloride Carbon Dioxide Anion Gap BUN Creatinine Estimated GFR (MDRD) Glucose Lactic Acid Calcium Magnesium 2.1 Total Bilirubin AST ALT Alkaline Phosphatase Total Protein Albumin Globulin Albumin/Globulin Ratio Lipase TSH Urine Color Urine Clarity Urine pH Ur Specific [place] Urine Protein Urine Glucose (UA) Urine Ketones Urine Occult Blood Urine Nitrite Urine Bilirubin Urine Urobilinogen Ur Leukocyte Esterase Urine RBC Urine WBC Ur Squamous Epith Cells Urine Bacteria Ur Microscopic Review Urine Culture Comments Salicylates Urine Opiates Screen Ur Oxycodone Screen Urine Methadone Screen Ur Propoxyphene Screen Acetaminophen Ur Barbiturates Screen Ur Tricyclics Screen Ur Phencyclidine Scrn Ur Amphetamine Screen U Methamphetamines Scrn U Benzodiazepines Scrn Urine Cocaine Screen U Cannabinoids Screen Ethyl Alcohol PD MEDICAL DECISION MAKING - ED course Complexity details: reviewed results (Mean cause of his altered mentation ap pears to be significant intraparenchymal bleed in the left frontal area with extension into the ventricles. There is 6 mm midline shift.), re-evaluated patient (At the time just preparing for transfer, the patient can still open his eyes to verbal and tactile stimuli and squeeze my hands to command. He is not making much verbal attempt or any verbal attempt. His breathing is unlabored. He to has a gag reflex. His lungs are clear at this time with wheezings having resolved with nebulizer treatment.), considered differential (Altered mental status to include conditions such as sepsis, electrolyte disorder, stroke or bleed. He has some slight abdominal tenderness so we will evaluate for potential sources of infection.), d/w family (I talked with his by phone and and she confirmed that there is not a pre-existing pulsed form and he is pretty functional and does activities at home and believes that he would want intervention and surgery), d/w rn lactation consultant (Dr. Rosales, Neurosurgery at [facility]) Departure - Departure Disposition: 02 Transfer Acute Care Hosp Clinical Impression: Anticoagulant long-term use, Intraparenchymal hemorrhage of brain Altered mental status Qualifiers: Altered mental status type: stupor Qualified Code(s): R40.1 - Stupor Condition: Serious Record reviewed to determine appropriate education?: Yes
[2019-09-16 11:11] LABS: BASOPHILS % (AUTO) 0.4 %; HGB - HEMOGLOBIN 15.3 g/dL (14.0-18.0); LYMPHOCYTES # (AUTO) 0.5 10^3/uL (1.5-3.5); LYMPHOCYTES % (AUTO) 5.5 %; MEAN CORPUSCULAR HEMOGLOBIN 30.3 pg (27.0-31.0); MEAN CORPUSCULAR HGB CONC 33.8 g/dL (32.0-36.0); MEAN CORPUSCULAR VOLUME 89.5 fL (80.0-94.0); MEAN PLATELET VOLUME 9.6 fL (7.4-11.4); MONOCYTES # (AUTO) 0.5 10^3/uL (0.0-1.0); NEUTROPHILS # (AUTO) 8.6 10^3/uL (1.5-6.6); NEUTROPHILS % (AUTO) 88.7 %; PLT - PLATELET COUNT 202 10^3/uL (130-450); RED BLOOD COUNT 5.05 10^6/uL (4.70-6.10); RED CELL DISTRIBUTION WIDTH 12.5 % (12.0-15.0); WHITE BLOOD COUNT 9.7 x10^3/uL (4.8-10.8)
[2019-09-16 11:31] LABS: ACETAMINOPHEN < 10 ug/mL (10-30); ALBUMIN 3.9 g/dL (3.2-5.5); ALBUMIN/GLOBULIN RATIO 1.1 (1.0-2.2); ALKALINE PHOSPHATASE 66 IU/L (42-121); ALT ALANINE AMINOTRANSFERASE 22 IU/L (10-60); AST ASPARTATE AMINOTRANSFERASE 30 IU/L (10-42); BILIRUBIN,TOTAL 1.2 mg/dL (0.2-1.0); BUN - BLOOD UREA NITROGEN 12 mg/dL (6-20); CALCIUM 8.8 mg/dL (8.5-10.3); CARBON DIOXIDE - CO2 28 mmol/L (21-32); CHLORIDE 101 mmol/L (101-111); CREATININE 1.1 mg/dL (0.6-1.2); GFR - MDRD 65 (>89); GLUCOSE 134 mg/dL (70-100); LIPASE 30 U/L (22-51); SALICYLATE < 6.0 mg/dL; SODIUM 138 mmol/L (135-145); TOTAL PROTEIN 7.4 g/dL (6.7-8.2)
[2019-09-16] MEDS ORDERED: SODIUM CHLORIDE 0.9% 1,000 ML IV ONE (12:04)
[2019-09-16] MEDS ORDERED: IOVERSOL 320 100 ML VIAL IVP ONE ×2 (12:44→15:53)
[2019-09-16 13:15] LABS: ABG OXYGEN SATURATION 91 % (94-98); ABG PCO2 42 mmHg (34-45); ABG PH 7.42 (7.35-7.45); ABG PO2 61 mmHg (80-100); ALLEN TEST POSITIVE
[2019-09-16] MEDS ORDERED: IPRATROPIUM/ALBUTEROL 3 ML NEB INH STA (14:06)
[2019-09-16] MEDS ORDERED: TRANEXAMIC ACID 1,000 MG in SODIUM CHLORIDE 0.9% 100ML 100 ML IV STA (15:01)
--- NOTE | 2019-09-16 15:06 | CT Report ---
Reason: altered mental status Procedure Date: 09/16/2019 Accession Number: [id number] / [id number] Procedure: CT - HEAD WO CPT Code: Final Report FULL RESULT: EXAM: CT HEAD EXAM DATE: 09/16/2019 02:51 PM. CLINICAL HISTORY: Altered mental status. COMPARISON: None. TECHNIQUE: Multiaxial CT images were obtained from the foramen magnum to the vertex. Reformats: Sagittal and coronal. IV contrast: None. In accordance with CT protocol optimization, one or more of the following dose reduction techniques were utilized for this exam: automated exposure control, adjustment of mA and/or KV based on patient size, or use of iterative reconstructive technique. FINDINGS: Parenchyma: There is a large left frontotemporal intraparenchymal bleed with decompression into the left lateral ventricular system.There is associated mass effect including midline shift of approximately 6 mm. Extraaxial Spaces: Basal cisterns are partially effaced. Compressed by increased mass-effect.No subdural or epidural collections identified. Ventricles: Normal in size and position. Sinuses and Orbits: Imaged paranasal sinuses, orbits, and mastoids show no significant abnormality. Bones: No evidence of fracture or calvarial defect. Other: None. IMPRESSION: Large acute left-sided intraparenchymal hemorrhage with mass effect. RADIA The above call report findings were discussed with Wayne Marr by Dr. Barrera Fraga at 03:00 PM on 09/16/2019.
[2019-09-16 15:13] LABS: INR 3.8 (0.8-1.2); PT - PROTHROMBIN TIME 40.3 secs (9.9-12.6)
[2019-09-16] MEDS ORDERED: PHYTONADIONE 10 MG/ML AMP SUBQ STA (15:13)
[2019-09-16 15:20] LABS: PARTIAL THROMBOPLASTIN TIME 48.2 secs (24.9-33.3)
[2019-09-16] MEDS: PROTHROMBIN COMPLEX CONC 500 UNIT VIAL IVP STA ×2 (15:33→15:35)
[2019-09-16] MEDS ORDERED: niCARdipine 20 MG/200 ML 20 MG/200 ML BAG IV STA (15:55)
[2019-09-16] MEDS ORDERED: levETIRAcetam INJ 500 MG in SODIUM CHLORIDE 0.9% 100ML 100 ML IV STA (16:06)
--- NOTE | 2019-09-16 16:19 | CT Report ---
Reason: upper abd pain Procedure Date: 09/16/2019 Accession Number: [id number] / [id number] Procedure: CT - Abdomen/Pelvis W CPT Code: Final Report FULL RESULT: EXAM: CT ABDOMEN AND PELVIS EXAM DATE: 09/16/2019 03:34 PM. CLINICAL HISTORY: Upper abdominal pain. COMPARISONS: CHEST W/ 09/16/2019 2:59 PM. TECHNIQUE: Routine helical CT imaging was performed through the abdomen and pelvis. IV contrast: Opti 320 100 mL. Enteric contrast: No. Reconstructions: Coronal and sagittal. In accordance with CT protocol optimization, one or more of the following dose reduction techniques were utilized for this exam: automated exposure control, adjustment of mA and/or KV based on patient size, or use of iterative reconstructive technique. FINDINGS: Lung Bases: Bilateral small pleural fluid collections, with associated compressive atelectasis. Mild to moderate cardiomegaly. Mitral valve calcification and coronary arterial calcifications suggested. Liver: No masses. Gallbladder/Bile Ducts: Previous cholecystectomy. Spleen: Normal. Pancreas: Normal. Adrenal Glands: Normal. Kidneys: Kidneys enhance symmetrically. No hydronephrosis. 3.5 cm right inferior pole renal cyst. Peritoneal Cavity/Bowel: Air-fluid level within stomach. No bowel obstruction. No evidence of diverticulitis or colitis. No evidence of appendicitis. The appendix is well visualized and normal. Pelvic Organs: Contour of the urinary bladder within normal limits. Prominent prostate, measured at 5.7 x 5.8 cm. Vasculature: No abdominal aortic aneurysm. Prominence of the bilateral proximal and common iliac arteries up to 2 cm transversely. Bones: No significant abnormality. Other: None. IMPRESSION: No bowel obstruction identified. Prominent prostate. Bilateral pleural fluid collections. RADIA
--- NOTE | 2019-09-16 16:24 | CT Report ---
Reason: cough/altered mentat Procedure Date: 09/16/2019 Accession Number: [id number] / [id number] Procedure: CT - CHEST W CPT Code: Final Report FULL RESULT: EXAM: CT CHEST EXAM DATE: 09/16/2019 03:34 PM. CLINICAL HISTORY: Cough/altered mentation. COMPARISONS: None. TECHNIQUE: Routine helical CT imaging was performed through the chest. IV contrast: 100 mL Optiray 320. Reconstructions: Coronal and sagittal. In accordance with CT protocol optimization, one or more of the following dose reduction techniques were utilized for this exam: automated exposure control, adjustment of mA and/or KV based on patient size, or use of iterative reconstructive technique. FINDINGS: Lungs/Pleura: Moderately prominent interstitial markings bilaterally, most conspicuous caudally, and suggestive of pulmonary edema. Bilateral small pleural fluid collections with associated compressive atelectasis. No lung consolidation is detected elsewhere bilaterally. Mediastinum: Moderate cardiomegaly. Mitral annulus calcification and coronary arterial calcifications suggested. No pericardial effusion. Enlarged superior and pretracheal lymph nodes up to 14 mm transversely. Ascending thoracic aortic aneurysm up to 4.5 cm. Bones: Unremarkable. Visualized Abdomen: Findings below the diaphragm reported separately. Other: None IMPRESSION: Moderate cardiomegaly. Bilateral pleural fluid collections and increased interstitial markings, suggestive of pulmonary edema. Borderline enlarged mediastinal lymph nodes, nonspecific. RADIA
[2019-09-16 18:07] VITALS: BP 149/78
== END 2019-09-16 17:49 | disposition short-term general hospital (02) ==
LOC: EDUNIT# → ED 09:53
DX: I61.8 Other nontraumatic intracerebral hemorrhage (principal); R40.1 Stupor; R06.2 Wheezing; R10.9 Unspecified abdominal pain; I11.0 Hypertensive heart disease with heart failure; I50.9 Heart failure, unspecified; I48.91 Unspecified atrial fibrillation; Z95.2 Presence of prosthetic heart valve; Z79.01 Long term (current) use of anticoagulants; Z79.82 Long term (current) use of aspirin
CPT/HCPCS: 36415; 36600; 70450; 71260; 74177; 80320; 80329; 81001; 82803; 83605; 83690; 83735; 85610; 85730; 87086; 94640; 96361; 96365; 96372; 96375; 99285; C9132; Q9967; 80053; 80306; 80307; 81003; 84443; 85025